=== PATIENT | male | born 1935 | race African-American/Black ===

== ENCOUNTER 2016-08-20 14:35 | Emergency (ER) | payer OTHER, MEDICAID ==
[~2016-08-20] VITALS: Ht 172.7 cm; Wt 70.0 kg
[2016-08-20 15:25] LABS: BASOPHILS % 1.1 % (0.0-2.0); EOSINOPHILS % 0.3 % (0.0-5.0); HEMATOCRIT. 32.1 % (42.0-52.0); HEMOGLOBIN. 10.5 g/dL (14.0-18.0); LYMPHOCYTES % 15.8 % (20.0-50.0); MEAN CORPUSCULAR HEMOGLOBIN 28.7 pg (28.0-32.0); MEAN CORPUSCULAR HGB CONC 32.6 g/dL (31.0-37.0); NEUTROPHILS % 75.8 % (40.0-76.0); PLATELET 173 x1000/uL (130-400); RED BLOOD CELL COUNT 3.65 mill/uL (4.7-6.1); RED CELL DISTRIBUTION WIDTH 15.2 % (11.6-14.6); WHITE BLOOD COUNT 5.1 x1000/uL (4.5-11.0)
[2016-08-20 15:29] LABS: CHLORIDE 101 mEq/L (98-107); INDEX HEMOLYSI 1 (1-3); INDEX ICTERIC 1 (1-4); INDEX LIPEMIC 1 (1-3)
[2016-08-20 15:33] LABS: INR 1.1; PROTHROMBIN TIME 11.6 sec
[2016-08-20 15:40] LABS: ALANINE AMINOTRANSFERASE 17 IU/L (13-61); ALBUMIN 3.6 g/dL (3.4-5.0); ANION GAP 9; CARBON DIOXIDE 33 mEq/L (21-32); UREA NITROGEN BLOOD 28 mg/dL (7-21); eGFR 47 mL/min (>60)
[2016-08-20] MEDS ORDERED: LABETALOL 5MG/ML SYR 20 MG/4 ML SYRINGE IV ONE (16:30)
[2016-08-20] MEDS ORDERED: CLONIDINE 0.1MG TABLET PO ONE (18:00)
[2016-08-20 21:45] VITALS: BP 176/80
== END 2016-08-20 22:22 | disposition short-term general hospital (02) ==
LOC: ER 14:50
DX: I10 Essential (primary) hypertension (principal); E11.9 Type 2 diabetes mellitus without complications; F03.90 Unspecified dementia, unspecified severity, without behavioral disturbance, psychotic disturbance, mood disturbance, and anxiety; N28.9 Disorder of kidney and ureter, unspecified; R42 Dizziness and giddiness; R51 Headache; R53.1 Weakness; Z86.73 Personal history of transient ischemic attack (TIA), and cerebral infarction without residual deficits
CPT/HCPCS: 36415; 70450; 71010; 80053; 85025; 85610; 93005; 99285